=== PATIENT | female | born 1960 | race American Indian/Alaskan Native ===

== ENCOUNTER 2017-07-02 03:05 | Emergency (ER) | payer BC ==
[2017-07-02] MEDS ORDERED: HALDOL ONE (03:15)
[2017-07-02] MEDS ORDERED: HALDOL IM ONE (03:21)
--- NOTE | 2017-07-02 03:42 | Emergency Department Report ---
HPI - General Chief Complaint: Altered Mental Status Time Seen by Provider: 07/02/17 03:15 - HPI HPI: This is a 57 year-old female presents to the emergency department by EMS with some type of anxiety or panic attack, or some type of psychosis. The patient presents acting hysterical. She is sobbing, talking to her mother, does not want anyone to talk to her or touch her, will not allow any blood work to be done, will not allow an EKG to be done. The patient is a poor historian currently secondary to her current condition. Apparently the patient does have some history of anxiety but has never had any symptoms or events such as this before. The daughter and [id number] are at bedside and able to give more information. Apparently what happened is that the patient called her daughter and she was crying and appearing to have some shortness of breath. There is a remote history of the patient having some type of asthma attack and/or hyperventilation and the daughter thought that this might be occurring again. The daughter was using multiple phones in order to both speak with the patient and also contact 911 as well as other family members. At some point, possibly around the time that the ambulance was arriving, the daughter says that she spoke with another family member who says that it did not appear to be consistent with a previous asthma attack or hyperventilation but that it was "something else." The patient has been dealing with a lot of stress lately. There have been multiple recent deaths in the family. There has been some financial issues and she had an argument with her boyfriend over one of the bills. Her son recently got into a motor vehicle accident and has been ill and she has been concerned about this. The patient has been taking care of multiple grandchildren. All this appears to be taking a toll on her. The patient also is a daily alcohol drinker and mostly drinks multiple beers. ED Review of Systems ROS: Stated complaint: ANXIETY Other details as noted in HPI Comment: Unobtainable due to pts medical conditions Physical Exam - Physical Exam Physical Exam: GENERAL: The patient is well-developed well-nourished. HENT: Normocephalic. Atraumatic. Patient has moist mucous membranes. EYES: Extraocular motions are intact. Pupils equal reactive to light bilaterally. NECK: Supple. Trachea is midline. CHEST/LUNGS: Clear to auscultation. There is no respiratory distress noted. HEART/CARDIOVASCULAR: Regular. There is no tachycardia. There is no murmur. ABDOMEN: Abdomen is soft, nontender. Patient has normal bowel sounds. There is no abdominal distention. SKIN: Skin is warm and dry. NEURO: The patient is awake, alert. The patient has no focal neurologic deficits. MUSCULOSKELETAL: There is no tenderness or deformity. There is no limitation range of motion. There is no evidence of acute injury. PSYCH: The patient is hysterical. She is sobbing/wailing. She keeps repeating certain phrases over and over again. She appears to be speaking to her mother. ED Course - Reevaluation(s) Reevaluation #1: Multiple re-evaluations were done on this patient during her ED stay, however I came back for my next shift this evening at 8 PM and went to reevaluate the patient as well. At this point she is awake, alert, calm and appropriate. She shows no signs of the hysteria and/or panic attack that she presented with last night. I had a long conversation with the patient and her daughter. We discussed the psychiatric consult, rescinding the 1013, and the need for outpatient follow-up with either psychiatry or psychology. The daughter had some concerns about the chart, timing/promptness of the psychiatric consultation , the inability to remain with her mother as she was a 1013. The chart and was updated to reflect the prehospital course to the best of my ability given the information given to me this evening by the daughter, and previous information I had was limited and some of it was provided by the [id number]. I explained that 1013 is a legal document and that there is a hospital rule about not allowing family to remain with those patients who are > 18 years of age. Once all questions were answered and concerns addressed, the patient was discharged home. Overall the patient does appear to have had a panic attack secondary to stressors and/or anxiety. She appears appropriate for discharge home and does not require inpatient psychiatric admission. 07/02/17 22:18 ED Medical Decision Making - Lab Data Result diagrams: 07/02/17 03:33 07/02/17 03:33 - EKG Data -: EKG Interpreted by Me EKG shows normal: sinus rhythm, axis, intervals, QRS complexes, ST-T waves Rate: normal - EKG Data When compared to previous EKG there are: previous EKG unavailable Interpretation: normal EKG - Medical Decision Making The patient presents in what appears to be hysteria but may just be a very bad anxiety attack. However she is uncooperative for any type of examination. We spoke to the [id number], who is bedside, and she understands the need for some medication to be given so that we can find out if this is secondary to intoxication, some type of medical condition, or some type of psychosis. She was given some Haldol and the patient is resting much more comfortably. As soon as the patient was resting comfortably, the restraints were taken off. Blood and urine was obtained. The patient has some signs of dehydration. She has a blood alcohol level of 0.15. The patient will be seen by the psych tool dispatcher but secondary to the Haldol and possibly the patient's medical condition, I am not sure if they will get an accurate assessment. However she will be set up for an evaluation by the psych team later in the morning to see if the 1013 to be rescinded or whether or not there is some true psychosis that would require inpatient admission. For the time being the patient has been made a 1013. - Differential Diagnosis anxiety, panic attack, psychosis, substance abuse Critical Care Time: No Critical care attestation.: If time is entered above; I have spent that time in minutes in the direct care of this critically ill patient, excluding procedure time. ED Disposition Clinical Impression: Panic attack due to exceptional stress Disposition: DC-01 TO HOME OR SELFCARE Is pt being admited?: No Condition: Stable Instructions: Stress (ED), Panic Disorder (ED), Anxiety (ED) Additional Instructions: Please follow up with a primary care physician in the next few days. Please follow-up with either a psychiatrist or a psychologist regarding stress management, anxiety and this previous panic attack. Please return to the emergency department with any worsening of your symptoms or any acute distress. Referrals: PRIMARY CARE, [Primary Care Provider] - 3-5 Days Time of Disposition: 21:38
[2017-07-02 03:46] LABS: Hematocrit 39.7 % (30.3-42.9); Hemoglobin 13.9 gm/dl (10.1-14.3); Mean Corpuscular HGB Conc 35 % (30-34); Mean Corpuscular Hemoglobin 33 pg (28-32); Mean Corpuscular Volume 94 fl (79-97); Platelet Count 314 K/mm3 (140-440); Red Blood Count 4.22 M/mm3 (3.65-5.03); Red Cell Distribution Width 13.5 % (13.2-15.2); White Blood Count 8.2 K/mm3 (4.5-11.0)
[2017-07-02 04:06] LABS: Urine Drugs of Abuse Note Disclamer
[2017-07-02 04:08] LABS: Albumin 4.6 g/dL (3.9-5); Albumin/Globulin Ratio 1.4 %; BUN/Creatinine Ratio 20; Blood Urea Nitrogen 10 mg/dL (7-17); Calcium 9.1 mg/dL (8.4-10.2); Carbon Dioxide 15 mmol/L (22-30); Chloride 103.9 mmol/L (98-107); Glucose 145 mg/dL (65-100); Sodium 140 mmol/L (137-145)
[2017-07-02 04:16] LABS: Bilirubin,Urine NEG (Negative); Blood,Urine SM (Negative); Ketones,Urine NEG (Negative); Leukocyte Esterase,Urine NEG (Negative); Nitrite,Urine NEG (Negative); Protein,Urine <15 mg/dL mg/dL (Negative); RBC,Urine < 1.0 /HPF (0.0-6.0); Urobilinogen,Urine < 2.0 mg/dL (<2.0)
[2017-07-02] MEDS ORDERED: VITAMIN B-1 100 MG, FOLVITE 1 MG, INFUVITE 10 ML in NACL 0.9% 1000 ML 1,000 ML IV ONE (04:22)
[2017-07-02 04:32] LABS: WBC,Urine < 1.0 /HPF (0.0-6.0)
--- NOTE | 2017-07-02 04:42 | XRay Report ---
FINAL REPORT EXAM: XR CXR CLINICAL INDICATIONS: Medical Clearance Psych FINDINGS: Single frontal view of the chest was acquired. The heart is normal in size. The lungs appear clear. The pleura and mediastinum are within normal limits. IMPRESSION: NO ACTIVE DISEASE IN THE CHEST
[2017-07-02 05:44] LABS: Basophils % (Manual) 0 % (0.0-1.8); Blastocytes % (Manual) 0 %; Eosinophils % (Manual) 0 % (0.0-4.3)
[2017-07-02 05:46] LABS: Anisocytosis 1+; Diff Status Complete; Platelet Estimate Consistent w Auto
[2017-07-02 05:47] LABS: Alanine Aminotransferase 18 units/L (7-56); Alkaline Phosphatase 92 units/L (35-129); Anion Gap 26 mmol/L
[2017-07-02 05:48] LABS: Potassium 4.7 mmol/L (3.6-5.0)
[2017-07-02 12:40] VITALS: BP 126/70
--- NOTE | 2017-07-02 19:38 | Consultation ---
<KEISHA LUND - Last Filed: 07/02/17 19:42> History of Present Illness - Reason for Consult Reason for consult: psych consult - Chief Complaint Chief complaint: 57 year old BF presents to [facility]. We have asked to see the patient for mental health consult. Patient presents to ER secondary to having a panic attack due to multiple stressors consisting of family issues and financial stressors. Also patient has struggled with taking for the family as well as dealing with her family's own issues. Earlier today per chart patient had an anxiety attack that seems nancy to a panic attack. This precipitated the family being concerned over her physical symptoms and ended up in them calling EMS. Upon presentation to the ER patient continued to act hysterical. Medications and Allergies Allergies Allergy/AdvReac Type Severity Reaction Status Date / Time No Known Allergies Allergy Verified 07/02/17 03:09 Past psychiatric history - past Psychiatric treatment and history psychiatric treatment history: Inpt: none Outpt: none No suicide attempts NO rehab substance use- etoh No family psych history - Social History Social history: other (Lives with family, +children, no work) Mental Status Exam - Vital signs Last Vital Signs Temp 98.3 F 07/02/17 12:43 Pulse 75 07/02/17 12:31 Resp 11 L 07/02/17 12:31 BP 126/70 07/02/17 12:31 Pulse Ox 99 07/02/17 12:31 Results Result Diagrams: 07/02/17 03:33 07/02/17 03:33 Abnormal lab results 07/02/17 07/02/17 07/02/17 Range/Units 03:33 03:33 03:33 MCH 33 H (28-32) pg MCHC 35 H (30-34) % Seg Neuts % (Manual) 33.0 L (40.0-70.0) % Lymphocytes % (Manual) 58.0 H (13.4-35.0) % Carbon Dioxide 15 L (22-30) mmol/L Creatinine 0.5 L (0.7-1.2) mg/dL Glucose 145 H (65-100) mg/dL Salicylates < 0.3 L (2.8-20.0) mg/dL Plasma/Serum Alcohol (0-0.07) gm% 07/02/17 Range/Units 03:33 MCH (28-32) pg MCHC (30-34) % Seg Neuts % (Manual) (40.0-70.0) % Lymphocytes % (Manual) (13.4-35.0) % Carbon Dioxide (22-30) mmol/L Creatinine (0.7-1.2) mg/dL Glucose (65-100) mg/dL Salicylates (2.8-20.0) mg/dL Plasma/Serum Alcohol 0.15 H (0-0.07) gm% All other labs normal. <NICOLAS LUND - Last Filed: 07/02/17 21:01> History of Present Illness - Chief Complaint Chief complaint: Patient currently is doing better, she denies any SI/HI/AH/VH. She ntoes that she feels this was a panic attack. She denies any depression, euphoria, or psychosis. No current withdrawal. No current active acute issues. Past psychiatric history - past Psychiatric treatment and history psychiatric treatment history: Patient notes ETOH use consists of 3 beers every other day. - Social History Social history: other (Lives with family, +children, no work, support comes from daughter) Mental Status Exam - Vital signs Last Vital Signs Temp 98.3 F 07/02/17 12:43 Pulse 75 07/02/17 12:31 Resp 18 07/02/17 20:37 BP 126/70 07/02/17 12:31 Pulse Ox 98 07/02/17 20:37 - Exam Orientation: time, place, person Affect: normal Mood: appropriate Thought Process: Intact Perceptions: none Speech: normal rate and pattern Concentration: focused Motor activity: normal Level of consciousness: alert Memory: Intact Sleep Symptoms: None Interaction: cooperative Mini mental status exam(if necessary): 24-30 Results Result Diagrams: 07/02/17 03:33 07/02/17 03:33 Abnormal lab results 07/02/17 07/02/17 07/02/17 Range/Units 03:33 03:33 03:33 MCH 33 H (28-32) pg MCHC 35 H (30-34) % Seg Neuts % (Manual) 33.0 L (40.0-70.0) % Lymphocytes % (Manual) 58.0 H (13.4-35.0) % Carbon Dioxide 15 L (22-30) mmol/L Creatinine 0.5 L (0.7-1.2) mg/dL Glucose 145 H (65-100) mg/dL Salicylates < 0.3 L (2.8-20.0) mg/dL Plasma/Serum Alcohol (0-0.07) gm% 07/02/ Range/Units 03:33 MCH (28-32) pg MCHC (30-34) % Seg Neuts % (Manual) (40.0-70.0) % Lymphocytes % (Manual) (13.4-35.0) % Carbon Dioxide (22-30) mmol/L Creatinine (0.7-1.2) mg/dL Glucose (65-100) mg/dL Salicylates (2.8-20.0) mg/dL Plasma/Serum Alcohol 0.15 H (0-0.07) gm% All other labs normal. Assessment and Plan Assessment and plan: 57 year old BF presents to [facility]. We have asked to see the patient for mental health consult. Patient presents to ER secondary to having a panic attack due to multiple stressors consisting of family issues and financial stressors. A/P Panic attack- patient has no need for acute inpt care at this time, it does not seem these symptoms are correlating with a psychosis. f/u with PCP or outpt mental health appointment for therapy. No meds at this time given that patient notes this is the first instance of this event. Rescind 1013. - Psychiatric problem (1) Panic attack due to exceptional stress Current Visit: Yes Status: Acute
== END 2017-07-02 21:50 | disposition home or self-care (01) ==
LOC: ED 03:05 → EEVIPCON 03:05 → ED 21:50
DX: F43.0 Acute stress reaction (principal)
CPT/HCPCS: 36415; 51701; 71010; 80053; 80307; 81001; 84484; 85007; 85025; 93005; 93010; 96365; 96366; 96372; 99285; G0480; J1630; J3411; J7030; 80320

== ENCOUNTER 2022-01-22 08:14 | Emergency (ER) | payer SELFPAY ==
[2022-01-22] MEDS ORDERED: IBUPROFEN 800 MG TAB PO ONE (08:29)
--- NOTE | 2022-01-22 08:29 | Emergency Department Report ---
ED Lower Extremity HPI - General Chief Complaint: Extremity Problem,Nontraumatic Stated Complaint: PAIN IN BIG TOE ON L FOOT Time Seen by Provider: 01/22/22 08:28 Source: patient Mode of arrival: Ambulatory Limitations: No Limitations - Related Data Previous Rx's Medication Instructions Recorded Last Taken Type Ibuprofen [Motrin] 800 mg PO Q8HR PRN #30 tablet 01/22/22 Unknown Rx Allergies Allergy/AdvReac Type Severity Reaction Status Date / Time No Known Allergies Allergy Verified 07/02/17 03:09 ED Review of Systems ROS: Stated complaint: PAIN IN BIG TOE ON L FOOT Other details as noted in HPI Comment: All other systems reviewed and negative ED Past Medical Hx - Past Medical History Previous Medical History?: Yes Hx Hypertension: Yes - Surgical History Past Surgical History?: No - Family History Family history: no significant - Social History Smoking Status: Current Every Day Smoker Substance Use Type: None - Medications Home Medications: Home Medications Medication Instructions Recorded Confirmed Last Taken Type Ibuprofen [Motrin] 800 mg PO Q8HR PRN #30 tablet 01/22/22 Unknown Rx ED Physical Exam - General Limitations: No Limitations General appearance: alert, in no apparent distress - Head Head exam: Present: atraumatic, normocephalic - Eye Eye exam: Present: normal appearance - ENT ENT exam: Present: mucous membranes moist - Neck Neck exam: Present: normal inspection - Respiratory Respiratory exam: Present: normal lung sounds bilaterally. Absent: respiratory distress - Cardiovascular Cardiovascular Exam: Present: regular rate, normal rhythm. Absent: systolic murmur, diastolic murmur, rubs, gallop - GI/Abdominal GI/Abdominal exam: Present: soft, normal bowel sounds - Extremities Exam Extremities exam: Present: normal inspection - Back Exam Back exam: Present: normal inspection - Neurological Exam Neurological exam: Present: alert, oriented X3 - Psychiatric Psychiatric exam: Present: normal affect, normal mood - Skin Skin exam: Present: warm, dry, intact, normal color. Absent: rash ED Course Vital Signs 01/22/22 08:28 Temperature 98.4 F Pulse Rate 67 Respiratory 16 Rate Blood Pressure 160/71 [Left] O2 Sat by Pulse 100 Oximetry ED Lower Extremity MDM - Lab Data Result diagrams: 01/22/22 08:45 01/22/22 08:45 - Medical Decision Making Labs 01/22/22 01/22/22 08:45 08:45 WBC 7.5 RBC 4.30 Hgb 13.6 Hct 39.1 MCV 91 MCH 32 MCHC 35 H RDW 13.5 Plt Count 320 Sodium 139 Potassium 4.2 Chloride 103.5 Carbon Dioxide 23 Anion Gap 17 BUN 11 Creatinine 0.4 L Estimated GFR > 60 BUN/Creatinine Ratio 28 Glucose 118 H Uric Acid 6.9 Calcium 9.5 Vital Signs 01/22/22 08:28 Temperature 98.4 F Pulse Rate 67 Respiratory 16 Rate Blood Pressure 160/71 [Left] O2 Sat by Pulse 100 Oximetry Critical care attestation.: If time is entered above; I have spent that time in minutes in the direct care of this critically ill patient, excluding procedure time. ED Disposition Clinical Impression: Arthritis Disposition: 01 HOME / SELF CARE / HOMELESS Is pt being admited?: No Does the pt Need Aspirin: No Condition: Stable Instructions: Arthritis Referrals: PATTI JUAN MD [Staff Physician] - 3-5 Days Forms: Work/School Release Form(ED) Time of Disposition: 11:05
[2022-01-22 10:02] LABS: Hematocrit 39.1 % (30.3-42.9); Hemoglobin 13.6 gm/dl (10.1-14.3); Mean Corpuscular HGB Conc 35 % (30-34); Mean Corpuscular Volume 91 fl (79-97); Platelet Count 320 K/mm3 (140-440); Red Cell Distribution Width 13.5 % (13.2-15.2)
[2022-01-22 10:24] LABS: Blood Urea Nitrogen 11 mg/dL (7-17); Calcium 9.5 mg/dL (8.4-10.2); Hemolysis Index 11; Uric Acid 6.9 mg/dL (3.5-7.6)
[2022-01-22 10:42] LABS: BUN/Creatinine Ratio 28
[2022-01-22 12:40] VITALS: BP 160/88
== END 2022-01-22 12:40 | disposition home or self-care (01) ==
LOC: ED 08:14
DX: M19.90 Unspecified osteoarthritis, unspecified site (principal); F17.200 Nicotine dependence, unspecified, uncomplicated; I10 Essential (primary) hypertension
CPT/HCPCS: 36415; 80048; 84550; 85027; 99283